=== PATIENT | female | born 1965 | race Caucasian/White ===

== ENCOUNTER 2017-04-21 14:52 | Inpatient (IN) | payer OTHER, MEDICARE ==
--- NOTE | ~2017-04-21 | DS ---
Discharge Summary [address] [place]. [address] NAME: DIANNA JACKSON : 63 STATUS : DIS Azael PAT#: [id number] AGE: 52 ADM/REG DATE : 04/21/17 MR#: [id number] REPORT SERV DATE: 04/25/17 DICTATED BY: LORA MARTINEZ DATE: 04/24/17 REPORT STATUS : Draft TRANSCRIBED BY: MABEL DATE: 04/24/17 ADMISSION DATE: 04/21/2017 DISCHARGE DATE: 04/24/2017 INVASIVE PROCEDURE: None. DISCHARGE DIAGNOSES: 1. Elevated liver enzymes. 2. Right shoulder pain. 3. Right sternocleidomastoid muscle spasm. 4. Diabetes mellitus with hyperglycemia. 5. Pseudohyponatremia secondary to hyperglycemia. 6. Systemic lupus erythematosus. 7. Fibromyalgia. 8. Chronic pain syndrome. 9. Chronic opioid use. DISCHARGE CONDITION: Stable. HISTORY OF PRESENT ILLNESS: For detailed HPI, make reference to Dr. Lora Martinez's dictation on 04/21/2017. In brief, this is a 52-year-old female with medical history of systemic lupus erythematosus, diabetes mellitus type 2, morbid obesity, hypertension, who presented to the emergency room with complaints of right shoulder pain and neck pain of a day duration. No preceding history of trauma. No fever. No chills. No associated photophobia or headaches. In the ER vital signs, blood pressure was 132/84, temperature was 37.3, pulse rate 102 beats per minute, respiratory rate 97% on room air. Physical exam was noted for limited degrees range of motion of the right shoulder joint due to pain, point tenderness along the sternocleidomastoid muscle and the deltoid muscle. LABORATORY DATA: WBC 11.0, hemoglobin 12.5, hematocrit 37.2. Chemistry serum sodium 124, potassium 4.1, chloride 94, creatinine 0.92. ALT 67, AST 47, C-reactive protein 18.9, troponin less than 0.02. An assessment of severe right shoulder pain, pseudohyponatremia secondary to hyperglycemia, diabetes mellitus and transaminitis was made in the ER, patient was admitted to the Hospitalist Service for further evaluation. HOSPITAL COURSE: 1. Right shoulder pain. The patient reported that she has extreme claustrophobia and refused to undergo an MRI. An x-ray of the shoulder was done that shows no acute fractures or dislocation. The patient was prescribed oxycodone for pain control during the course of this admission. 2. Pseudohyponatremia due to hyperglycemia. The patient was started on subcu insulin. The patient's blood sugar trended down. The patient's sodium improved to 133, and remained stable throughout the course of this admission. 3. Diabetes mellitus type 2. The patient's blood sugar was controlled with subcu insulin Discharge Summary [address] [place]. [address] NAME: DIANNA JACKSON : 63 STATUS : DIS Azael PAT#: [id number] AGE: 52 ADM/REG DATE : 04/21/17 MR#: [id number] REPORT SERV DATE: 04/25/17 DICTATED BY: LORA MARTINEZ DATE: 04/24/17 REPORT STATUS : Draft TRANSCRIBED BY: MABEL DATE: 04/24/17 throughout the course of admission. The patient was advised to continue oral hypoglycemics and follow up with primary care physician for diabetes management. 4. Elevated liver enzymes. The patient was noted to have AST of 47, ALT 218, alkaline phosphatase 217. The patient's acetaminophen level was checked, was less than 0.2. Hepatitis panel was negative. A right upper quadrant ultrasound of the liver was done that was consistent with hepatic steatosis. The patient's liver enzymes continued to trend up, peeked at 407. Gastroenterology was consulted, recommended ISAC, Alpha-1 antitrypsin, smooth muscle antibody, and ceruloplasmin level were all ordered. The patient's AST and ALT subsequently trended down to 356 and 218 respectively. Gastroenterology recommended the patient to have an outpatient followup with repeat labs within one week of discharge. The patient is also scheduled to have an EGD versus a new colonoscopy with Gastroenterology within three days of discharge. 5. Chronic opioid use. The patient reports that she has been on chronic opioids with hydrocodone prior to admission. The patient continued to report severe pain. Pain was controlled with oxycodone during the course of this admission. No acetaminophen was prescribed to this patient during this admission. The patient was discharged home to continue oxycodone and follow up at the [facility] within five days of discharge. DISCHARGE MEDICATIONS: 1. Amitriptyline 50 mg p.o. at bedtime. 2. Amlodipine/olmesartan 5/40 p.o. at bedtime. 3. Coreg 12.5 mg p.o. b.i.d. 4. Hydrochlorothiazide 25 mg p.o. daily. 5. Insulin detemir 64 units b.i.d. 6. Zyrtec 10 mg p.o. b.i.d. 7. Melatonin 3 mg p.o. daily. 8. Singulair 10 mg p.o. daily. 9. Reglan 10 mg p.o. before meals. 10.Multivitamins. 11.Omeprazole 40 mg p.o. daily. 12.Topamax 100 mg p.o. b.i.d. 13.Oxycodone 10 one p.o. q.8 hours only 18 pills prescribed. The patient to have an appointment with the Pain Clinic. The patient was counseled extensively during this admission with the possible side effects of chronic opioid use including opioid-induced constipation as well as opioid overdose which then result into . The patient adamantly demand that she would rather take pain medication than to continue to live in pain. She insisted on being prescribed some pain medication prior to see a pain clinic five days from the time of discharge. DISCHARGE ACTIVITY: As tolerated. DISCHARGE DISPOSITION: Home. DISCHARGE FOLLOWUP: Discharge Summary [address] [address] NAME: DIANNA JACKSON : 63 STATUS : DIS Azael PAT#: [id number] AGE: 52 ADM/REG DATE : 04/21/17 MR#: [id number] REPORT SERV DATE: 04/25/17 DICTATED BY: LORA MARTINEZ DATE: 04/24/17 REPORT STATUS : Draft TRANSCRIBED BY: MABEL DATE: 04/24/17 1. Follow up with Gastroenterology within one week of discharge. 2. Follow up with primary care physician within one week of discharge. 3. Follow up with Pain Clinic within one week of discharge. Greater than 30 minutes was used to prepare this patient's discharge, reconcile medication, and advised the patient on discharge plans and followup. DICTATED BY: MD DYLAN Noriega/MODL Lora Martinez MD / [id number] CC: MD Blaise Noriega D.O.
--- NOTE | ~2017-04-21 | CN ---
Consultation Report [facility] [address] [place]. [address] NAME: DIANNA JACKSON : 63 STATUS : DIS IN PAT#: [id number] AGE: 52 ADM/REG DATE : 04/21/17 MR#: [id number] REPORT SERV DATE: 04/29/17 DICTATED BY: JOSE EDUARDO WHEELER DATE: 04/26/17 REPORT STATUS : Draft TRANSCRIBED BY: MODL DATE: 04/26/17 CONSULTATION DATE OF CONSULTATION: 04/24/2017 DICTATED BY: Kita Wang, nurse practitioner dictating for Dr. Jose Eduardo Wheeler. REASON FOR CONSULTATION: Elevated liver enzymes. HISTORY OF PRESENT ILLNESS: This patient was seen in our office on 02/22/2017 for evaluation of chronic gastroparesis. She had a gastric emptying study that revealed continued delayed gastric emptying with 4-hour retention of 50%. She was continued on Reglan 10 mg twice daily. She is schedule for EGD with small-bowel biopsy and colonoscopy with biopsies next week. The patient has a history of GERD and fatty liver in the setting of obesity and diabetes mellitus. She was admitted with acute onset of right neck, shoulder, and subscapular pain that began on 04/21/2017 at 05:30 a.m. Ultrasound revealed an enlarged, fatty liver, status post GBS with dilated common bile duct of 10 mm. The patient is status post cholecystectomy 1990 that was initially laparoscopic converted to open procedure secondary to cutting of the bile duct and required repair. The patient reports she did not have any stones in her duct. She has not had a BM since admission. She denies any nausea or vomiting. She denies any abdominal pain, only right subscapular pain. PAST MEDICAL HISTORY: 1. GERD. 2. Fatty liver. 3. Gastroparesis. 4. Hypertension. 5. COPD. 6. Type 2 diabetes mellitus. 7. Fibromyalgia. 8. RA. 9. Chronic back pain. 10.DAVY for which she wears CPAP. 11.Asthma. 12.Lupus. 13.RLS. 14.Migraine headaches. 15.Palpitations. 16.Morbid obesity. PAST SURGICAL HISTORY: Umbilical hernia repair in 2009, carpal tunnel release 1999, C- section 1992 and 1996, open cholecystectomy 1990, rectal abscess in 1982 and 1990, tonsillectomy in 1964, knee surgery. Consultation Report [facility] [address] [place]. [address] NAME: DIANNA JACKSON : 63 STATUS : DIS IN PAT#: [id number] AGE: 52 ADM/REG DATE : 04/21/17 MR#: [id number] REPORT SERV DATE: 04/29/17 DICTATED BY: JOSE EDUARDO WHEELER DATE: 04/26/17 REPORT STATUS : Draft TRANSCRIBED BY: MABEL DATE: 04/26/17 ALLERGIES: NAPROXEN. HOME MEDICATIONS: Include albuterol, Elavil, Nicholas, Coreg, Artificial Tears, Zyrtec, vitamin D, Flexeril, Cymbalta, Nexium 40 mg twice daily, estradiol, Bydureon, Amaryl, hydrochlorothiazide, [place] 10/325 mg t.i.d. p.r.n., Atarax, Advil, Levemir, melatonin, metformin, metoclopramide 10 mg b.i.d. a.c., Singulair, multivitamin, Actos, progesterone, Requip, Detrol, Topamax, and calcium. SOCIAL HISTORY: The patient is and disabled. She denies any alcohol or tobacco use. FAMILY HISTORY: Mother had colon polyps. Her father had cirrhosis and liver cancer with metastasis to the lung. Her son has undiagnosed GI problems with abdominal pain and irregular bowel function. He was told he had precancerous cells in the colon. Maternal grandmother ovarian cancer and maternal aunt breast cancer and colon polyps. REVIEW OF SYSTEMS: Otherwise unremarkable for constitutional, endocrine, neurologic, psychiatric, ocular, ENT, pulmonary, cardiovascular, GI, , or rheumatologic symptoms except for as noted above. PHYSICAL EXAMINATION: VITAL SIGNS: Temperature max 100.1. Temperature now 98.5, pulse 89, respirations 22, BP 131/69. GENERAL: The patient is morbidly obese. No acute distress. Complains of pain in the right shoulder and subscapular region with ice to the area and unable to lay on her right shoulder. HEENT: Grossly within normal limits. CHEST: Clear to auscultation bilaterally. CARDIOVASCULAR: Regular rate and rhythm. ABDOMEN: Obese, soft, nontender, no palpable mass. EXTREMITIES: Without edema. LABORATORY DATA: WBC 8.7, hemoglobin mildly low at 11.6, INR 1.1, platelets 244. Sodium 134, potassium 3.8, glucose high at 258, albumin low at 3.3, total bilirubin 1.0, alkaline phosphatase high at 217, ALT high at 356, AST high at 218. There is no prior elevation of alkaline phosphatase prior to this admission per [facility]. There is, however, mild intermittent transaminase elevation since 2009. Hepatitis profile nonreactive. IMPRESSION: 1. Right shoulder/neck and subscapular pain, definitely musculoskeletal as she cannot lay on her shoulder or neck. 2. Fatty liver with chronically elevated liver transaminases. However, liver enzymes are elevated more than baseline. Total bilirubin is normal. 3. Gastroesophageal reflux disease. 4. Diabetic gastroparesis. 5. Type 2 diabetes mellitus. Consultation Report [address] [address] NAME: DIANNA JACKSON : 63 STATUS : DIS IN PAT#: [id number] AGE: 52 ADM/REG DATE : 04/21/17 MR#: [id number] REPORT SERV DATE: 04/29/17 DICTATED BY: JOSE EDUARDO WHEELER DATE: 04/26/17 REPORT STATUS : Draft TRANSCRIBED BY: MABEL DATE: 04/26/17 6. Morbid obesity. PLAN: The patient does have a family history of alcoholic cirrhosis and liver cancer. We will check ISAC, SMA, AMA, alpha 1 antitrypsin, and ceruloplasmin as well as iron studies. The patient was started on hormone replacement therapy about 5 months ago, and this could be a cause for elevation in her liver enzymes. She will keep appointment next week for EGD and colonoscopy. We will give milk of magnesia for opioid induced constipation. Okay for discharge home from a GI standpoint, and we will be available as needed. /MODL Jose Eduardo Wheeler M.D. / [id number] CC: MD Blaise Noriega D.O. Nathan B. Wyatt, MD Russell Walker, M.D. Marina Grigorian, M.D. DENNIS FORD, MD
--- NOTE | ~2017-04-21 | HP ---
History And Physical [address] [place]. [address] NAME: DIANNA JACKSON : 63 STATUS : ADM Azael PAT#: [id number] AGE: 51 ADM/REG DATE : 04/21/17 MR#: [id number] REPORT SERV DATE: 04/21/17 DICTATED BY: LORA MARTINEZ DATE: 04/21/17 REPORT STATUS : Draft TRANSCRIBED BY: MABEL DATE: 04/21/17 DATE OF ADMISSION: 04/21/2017 CHIEF COMPLAINT: Right shoulder pain and neck pain. HISTORY OF PRESENT ILLNESS: This is a 51-year-old female with medical history of systemic lupus erythematosus, diabetes mellitus type 2, morbid obesity, hypertension who presented to the emergency room with complaints of right shoulder pain and neck pain of a day duration. The patient reports that she was in her usual state of health until about 7 hours prior to presentation when she woke up from sleep and noticed severe right shoulder pain and neck pain. She reports that the pain was 10/10 in severity, aching in nature. No known precipitating factor. She reports that the pain radiated through the right side of her neck to her right shoulder and all the way into forearms. She denies any associated numbness or tingling or weakness of the right upper extremity. She denies any preceding trauma or fall. No known relieving factor. She reports that the pain is exacerbated by rotation or movement of her neck to the right side. She denies any associated headache, fever, chills, nasal congestion, or sore throat. She denies any history of recent travel. No associated chest pain, shortness of breath, palpitation, presyncope, or syncopal episode. The patient reported that due to worsening of the pain she decided to come to the emergency room for further evaluation. In the emergency room, the patient was given IV morphine. The patient reported that this improved the pain from 10/10 to about 8/10. She was also noted to have blood glucose of 375 and serum sodium of 127. Hence, the hospitalist team was consulted to admit the patient for further evaluation. PAST MEDICAL HISTORY: 1. Systemic lupus erythematosus, presently not, on Plaquenil. The patient reports that she had Plaquenil retinal toxicity. 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 She denies any recent history of systemic lupus erythematosus acute flare. Her typical flare is usually associated with diffuse joint pain. She endorses that this current presentation is not similar to known lupus flares. 2. Diabetes mellitus type 2. 3. Morbid obesity. 4. Hypertension. 5. Dyslipidemia. 6. Fibromyalgia. 7. COPD/asthma. SURGERY HISTORY: 1. . 2. Laser for feet warts x3 1990. 3. Gallbladder surgery in 1990. 4. Rectal abscess drainage in 1990. 5. Umbilical hernia repair in 1999. History And Physical [address] [place]. [address] NAME: DIANNA JACKSON : 63 STATUS : ADM Azael PAT#: [id number] AGE: 51 ADM/REG DATE : 04/21/17 MR#: [id number] REPORT SERV DATE: 04/21/17 DICTATED BY: LORA MARTINEZ DATE: 04/21/17 REPORT STATUS : Draft TRANSCRIBED BY: MABEL DATE: 04/21/17 SOCIAL HISTORY: She denies drinking alcohol, smoking cigarettes, or illicit drug use. She is currently , lives with her , and currently unemployed. ALLERGIC HISTORY: She is allergic to naproxen. HOME MEDICATIONS: 1. Ibuprofen 800 mg q.6 hours p.r.n. 2. Artificial Tears 1 drop 4 times a day. 3. Estradiol 0.1 mg patch, Sundays and Wednesdays. 4. Levemir 64 units b.i.d. 5. Bydureon 2 mg subcu q.7 on Fridays. 6. Metoclopramide 30 mg p.o. before each meals. 7. Hydrocodone 10/325, one tab p.o. three times a day. 8. Flexeril 10 mg one p.o. t.i.d. 9. Proventil HFA 2 puffs q.4 hours. 10.Hydroxyzine 50 mg t.i.d. 11.Nexium 40 mg b.i.d. 12.Singulair 10 mg p.o. daily. 13.Metformin extended release 1000 mg p.o. b.i.d. 14.Progesterone 100 mg p.o. at bedtime. 15.Amitriptyline 50 mg p.o. at bedtime. 16.Actos 50 mg p.o. daily. 17.Glimepiride 2 mg p.o. b.i.d. 18.Topiramate 100 mg p.o. b.i.d. 19.Multivitamin one tab daily. 20.Vitamin D3 supplement 5000 units 1 p.o. daily. 21.Amlodipine-olmesartan 5/40 one tablet p.o. at bedtime. 22.Ropinirole 1 mg p.o. at bedtime. 23.Melatonin 3 mg p.o. at bedtime. 24.Zyrtec 10 mg p.o. at bedtime. FAMILY HISTORY: Significant for diabetes mellitus in both parents. Father is currently diseased, of old age complications. PHYSICAL EXAMINATION: VITAL SIGNS: Blood pressure 132/84 mmHg, temperature 37.3, pulse 104 beats per minute, respiratory rate 97 on room air. GENERAL: In acute distress due to pain. HEENT: Pupils equal, round, and reactive. Extraocular muscles intact. No pallor. No jaundice. No cyanosis. Oral mucosa moist. NECK: Point tenderness along the right sternocleidomastoid muscle. No JVD. No palpably enlarged thyromegaly. No cervical lymphadenopathy. CHEST: Equal expansion, nontender. LUNGS: Clear to auscultation bilaterally. No crackles. No wheezes. No rhonchi. CARDIOVASCULAR: Regular rate and rhythm. S1, S2. No rubs. No gallops. No murmurs. ABDOMEN: Obese, bowel sounds normoactive. Nontender. No palpably enlarged organomegaly. EXTREMITIES: Lower extremities, no pedal edema. History And Physical [address] [address] NAME: DIANNA JACKSON : 63 STATUS : ADM Azael PAT#: [id number] AGE: 51 ADM/REG DATE : 04/21/17 MR#: [id number] REPORT SERV DATE: 04/21/17 DICTATED BY: LORA MARTINEZ DATE: 04/21/17 REPORT STATUS : Draft TRANSCRIBED BY: MABEL DATE: 04/21/17 NEUROLOGY: Cranial nerve 2 through 12 intact. Strength in lower extremities 5/5. Upper extremities strength examination limited due to shoulder pains. MUSCULOSKELETAL: Point tenderness along the right deltoid muscle. Decreased range of motion to abduction, adduction, extension and flexion due to pain. No joint deformity. No skin rash. No erythema. Limited range of motion due to pain. Left shoulder intact. LABORATORY DATA: WBC 11.0, hemoglobin 12.5, hematocrit 37.2, platelets 258. Chemistry: Serum sodium 127, potassium 4.1, chloride 97, bicarb 27, BUN 13, creatinine 0.92, GFR 72. Glucose 358, calcium 9.2, total protein 7.4, albumin 3.3, globulin 4.1, ALT 67, AST 47, C- reactive protein 18.9, troponin less than 0.02. Urinalysis is normal. ASSESSMENT AND PLAN: 1. Right shoulder pain and neck pain, likely due to severe right sternocleidomastoid muscle spasm. 2. Diabetes mellitus type 2 with hyperglycemia. 3. Pseudohyponatremia secondary to hyperglycemia. 4. Transaminase. 5. Leukocytosis. PLAN: 1. I will order a cervical spine x-ray and right shoulder x-ray to rule out any acute fractures or dislocation. Pain control will be achieved with hydrocodone and IV Dilaudid for breakthrough. 2. Pseudohyponatremia due to hyperglycemia, corrected. Sodium for glucose is 133. We will treat the patient hyperglycemia, give IV fluid resuscitation. We will treat the patient hyperglycemia with insulin subcutaneously and IV fluid resuscitation. We will recheck the patient's serum sodium after IV fluid and glucose treatment. 3. Transaminases. Definitive etiology unclear, may relate to hepatic steatosis. I will obtain hepatitis panel to rule out a viral etiology. I will also check serum acetaminophen level. 4. Leukocytosis, likely reactive leukocytosis due to severe pain. I will repeat the patient's WBC monitor closely. 5. Systemic lupus erythematosus, currently off Plaquenil, due to history of Plaquenil toxicity. No evidence of acute lupus flare at this time. ESR is essentially within range for patient's age as well as CRP. We will continue to monitor. 6. Fibromyalgia. We will recommence patient's Cymbalta. ADMISSION DISPOSITION: 1. CDU. 2. Admission status observation. 3. DVT prophylaxis. 4. Heparin subcu. CODE STATUS: Full code. This patient will be admitted under the Hospitalist Service. We will continue to monitor. History And Physical [address] [place]. [address] NAME: DIANNA JACKSON : 63 STATUS : ADM Azael PAT#: [id number] AGE: 51 ADM/REG DATE : 04/21/17 MR#: [id number] REPORT SERV DATE: 04/21/17 DICTATED BY: LORA MARTINEZ DATE: 04/21/17 REPORT STATUS : Draft TRANSCRIBED BY: MODL DATE: 04/21/17 DYLAN/MABEL Lora Martinez MD / [id number] CC: Essie Rubalcava M.D.
[2017-04-21 11:58] LABS: BASOPHILS 0.1 %; BASOPHILS ABSOLUTE 0.01 10/3/uL (0.0-0.16); EOSINOPHILS 2.5 %; EOSINOPHILS ABSOLUTE 0.28 10/3/uL (0.0-0.53); ER CBC TAT 0 Hrs 12 Mins; HEMATOCRIT 37.2 % (36.0-48.0); HEMOGLOBIN 12.5 g/dL (12.0-16.0); IMMATURE GRANULOCYTES 0.2 %; IMMATURE GRANULOCYTES ABSOLUTE 0.02 10/3/uL (0.0-0.11); LYMPHOCYTES 24.5 %; LYMPHOCYTES ABSOLUTE 2.69 10/3/uL (0.67-4.30); MEAN CORPUS HGB CONC 33.6 g/dL (32.0-36.0); MEAN CORPUSCULAR VOLUME 86.3 fL (80-100); MEAN PLATELET VOLUME 10.1 fL (9.2-13.0); MONOCYTES 4.8 %; MONOCYTES ABSOLUTE 0.53 10/3/uL (0.21-1.20); NEUTROPHILS 67.9 %; NEUTROPHILS ABSOLUTE 7.47 10/3/uL (2.02-8.40); PLATELET COUNT 258 10/3/uL (150-400); RBC DISTRIBUTION WIDTH 13.6 % (12.0-16.0); RED CELL COUNT 4.31 10/6/uL (4.0-5.6)
[2017-04-21 11:59] LABS: MANUAL DIFF NO %
[2017-04-21 12:13] LABS: ASCORBIC ACID (UR NOT ORDER) NEG (NEG); BILIRUBIN, URINE NEGATIVE (NEG); ER URINALYSIS TAT 0 Hrs 14 Mins; KETONE, URINE NEGATIVE (NEG); LEUKOCYTE ESTERASE(NOT OR NEG (NEG); NITRITE (URINE) NEG (NEG); WBC (NOT ORDERED) (RFLEX) 1 (0-5)
[2017-04-21 12:14] LABS: A/G RATIO 0.8 (0.7-1.9); ALBUMIN 3.3 G/DL (3.5-5.0); ALKALINE PHOSPHATASE 99 U/L (45-117); BUN (BLOOD UREA NITROGEN) 13 MG/DL (6-23); C-REACTIVE PROTEIN 18.9 MG/L (<8.0); CALCIUM, SERUM 9.2 MG/DL (8.5-10.4); CHLORIDE, SERUM 97 MMOL/L (96-112); CO2 (CARBON DIOXIDE) 27 MMOL/L (24-34); CREATININE 0.92 MG/DL (0.55-1.02); GFR AFRICAN AMERICAN 83 ML/MIN (>=60); GFR NON AFRICAN AMERICAN 72 ML/MIN (>=60); GLOBULIN 4.1 G/DL (2.5-4.1); GLUCOSE, SERUM 358 MG/DL (60-99); POTASSIUM, SERUM 4.1 MMOL/L (3.5-5.3); SGPT(ALT) 67 U/L (5-65); SODIUM, SERUM 127 MMOL/L (135-148); TOTAL BILIRUBIN 0.3 MG/DL (0-1.2); TOTAL PROTEIN 7.4 G/DL (6.0-8.5); TROPONIN I <0.02 NG/ML (<0.05)
[2017-04-21 12:15] LABS: SGOT(AST) 47 U/L (5-40)
[2017-04-21 12:39] LABS: SED RATE 28 MM/HR (0-20)
[~2017-04-21 14:52] MED LIST: ACTOS15 PO; ADVIL PO; AMARYL2 PO; AMIT100 PO; AMIT50 PO; AT25 PO; ATARAX50B PO; AZOR1 TA1 PO; BIRTH CONTROL PO; BYDUREON2 MG SQ; CALCIUM OTC PO; COREG12 PO; COREG6 PO; CYMBALTA60 PO; D 5000 PO; DETROLLA4 PO; FLEX PO; FORTAMET1000 MG PO; GLUCPH PO; HCTZ25B PO; HYDROCHLOROT25 MG PO; LEVEMFLXPN SC; LEVEMIR SC; MELA3 PO; MINIVELLE1 EAC1 TOP; MULTIPLE VIT PO; MULTIVIT/MIN PO; MYRBETRIQ25 MG PO; NEXIUM40 PO; NORCO1 TAB PO; PR25 PO; PROMETRIUM PO; PROTONIX PO; PROVHFA INH; REG PO; REQUIP1 PO; REST15 PO; SINGULAIR1 PO; TEARS PURE OPH; TOPAMAX100 PO; TOPAMAX25 PO; VITAMIN D31000 UNIT PO; VIVELLE SY0.025 MG/2 TOP; ZYRTEC ALLGY10 MG PO
[2017-04-21 22:58] LABS: BASOPHILS 0.1 %; BASOPHILS ABSOLUTE 0.01 10/3/uL (0.0-0.16); EOSINOPHILS 3.1 %; EOSINOPHILS ABSOLUTE 0.27 10/3/uL (0.0-0.53); HEMATOCRIT 35.1 % (36.0-48.0); HEMOGLOBIN 11.7 g/dL (12.0-16.0); IMMATURE GRANULOCYTES 0.2 %; IMMATURE GRANULOCYTES ABSOLUTE 0.02 10/3/uL (0.0-0.11); LYMPHOCYTES 30.7 %; LYMPHOCYTES ABSOLUTE 2.64 10/3/uL (0.67-4.30); MANUAL DIFF NO %; MEAN CORPUS HGB CONC 33.3 g/dL (32.0-36.0); MEAN CORPUSCULAR VOLUME 86.9 fL (80-100); MEAN PLATELET VOLUME 9.8 fL (9.2-13.0); MONOCYTES 6.4 %; MONOCYTES ABSOLUTE 0.55 10/3/uL (0.21-1.20); NEUTROPHILS 59.5 %; NEUTROPHILS ABSOLUTE 5.11 10/3/uL (2.02-8.40); PLATELET COUNT 239 10/3/uL (150-400); RBC DISTRIBUTION WIDTH 13.7 % (12.0-16.0); RED CELL COUNT 4.04 10/6/uL (4.0-5.6); WHITE BLOOD CELLS 8.6 10/3/uL (4.5-10.5)
[2017-04-21 23:32] LABS: BUN (BLOOD UREA NITROGEN) 12 MG/DL (6-23); CALCIUM, SERUM 8.4 MG/DL (8.5-10.4); CHLORIDE, SERUM 100 MMOL/L (96-112); CO2 (CARBON DIOXIDE) 30 MMOL/L (24-34); CREATININE 0.97 MG/DL (0.55-1.02); GFR AFRICAN AMERICAN 78 ML/MIN (>=60); GFR NON AFRICAN AMERICAN 67 ML/MIN (>=60); GLUCOSE, SERUM 241 MG/DL (60-99); PHOSPHORUS, SERUM 2.6 MG/DL (2.5-4.5); POTASSIUM, SERUM 3.4 MMOL/L (3.5-5.3); SODIUM, SERUM 134 MMOL/L (135-148)
[2017-04-22 05:26] LABS: A/G RATIO 0.9 (0.7-1.9); ALBUMIN 3.1 G/DL (3.5-5.0); ALKALINE PHOSPHATASE 99 U/L (45-117); BUN (BLOOD UREA NITROGEN) 11 MG/DL (6-23); CALCIUM, SERUM 8.3 MG/DL (8.5-10.4); CHLORIDE, SERUM 100 MMOL/L (96-112); CO2 (CARBON DIOXIDE) 31 MMOL/L (24-34); CREATININE 0.84 MG/DL (0.55-1.02); FREE T4 1.36 NG/DL (0.76-1.46); GFR AFRICAN AMERICAN 92 ML/MIN (>=60); GFR NON AFRICAN AMERICAN 79 ML/MIN (>=60); GLOBULIN 3.6 G/DL (2.5-4.1); GLUCOSE, SERUM 208 MG/DL (60-99); POTASSIUM, SERUM 3.4 MMOL/L (3.5-5.3); SGOT(AST) 90 U/L (5-40); SGPT(ALT) 86 U/L (5-65); SODIUM, SERUM 134 MMOL/L (135-148); TOTAL BILIRUBIN 0.5 MG/DL (0-1.2); TOTAL PROTEIN 6.7 G/DL (6.0-8.5)
[2017-04-22 05:27] LABS: PHOSPHORUS, SERUM 3.4 MG/DL (2.5-4.5)
[2017-04-22 06:07] LABS: PROCALCITONIN 0.17 ng/mL (<0.5)
[2017-04-22 10:50] LABS: ALBUMIN 2.9 G/DL (3.5-5.0); SGPT(ALT) 128 U/L (5-65); TOTAL BILIRUBIN 0.5 MG/DL (0-1.2); TOTAL PROTEIN 6.6 G/DL (6.0-8.5)
[2017-04-22 10:51] LABS: ALKALINE PHOSPHATASE 117 U/L (45-117); DIRECT BILIRUBIN < 0.1 MG/DL (0.0-0.4); INDIRECT BILIRUBIN(NOT ORDER) 0.4 MG/DL (0.1-0.9); SALICYLATE < 1.7 MG/DL (-); SGOT(AST) 183 U/L (5-40)
[2017-04-23 04:51] LABS: BASOPHILS 0.1 %; BASOPHILS ABSOLUTE 0.01 10/3/uL (0.0-0.16); EOSINOPHILS 2.5 %; HEMATOCRIT 36.3 % (36.0-48.0); HEMOGLOBIN 12.2 g/dL (12.0-16.0); IMMATURE GRANULOCYTES 0.3 %; IMMATURE GRANULOCYTES ABSOLUTE 0.02 10/3/uL (0.0-0.11); LYMPHOCYTES 32.1 %; LYMPHOCYTES ABSOLUTE 2.54 10/3/uL (0.67-4.30); MANUAL DIFF NO %; MEAN CORPUS HGB CONC 33.6 g/dL (32.0-36.0); MEAN CORPUSCULAR HEMOGLOB 29.3 pg (26.0-34.0); MEAN CORPUSCULAR VOLUME 87.3 fL (80-100); MEAN PLATELET VOLUME 9.8 fL (9.2-13.0); MONOCYTES 5.9 %; MONOCYTES ABSOLUTE 0.47 10/3/uL (0.21-1.20); NEUTROPHILS 59.1 %; NEUTROPHILS ABSOLUTE 4.68 10/3/uL (2.02-8.40); PLATELET COUNT 255 10/3/uL (150-400); RBC DISTRIBUTION WIDTH 13.7 % (12.0-16.0); RED CELL COUNT 4.16 10/6/uL (4.0-5.6); WHITE BLOOD CELLS 7.9 10/3/uL (4.5-10.5)
[2017-04-23 05:05] LABS: A/G RATIO 0.8 (0.7-1.9); ALBUMIN 3.2 G/DL (3.5-5.0); BUN (BLOOD UREA NITROGEN) 10 MG/DL (6-23); CHLORIDE, SERUM 97 MMOL/L (96-112); CO2 (CARBON DIOXIDE) 30 MMOL/L (24-34); CREATININE 0.95 MG/DL (0.55-1.02); GFR AFRICAN AMERICAN 79 ML/MIN (>=60); GFR NON AFRICAN AMERICAN 68 ML/MIN (>=60); GLOBULIN 3.9 G/DL (2.5-4.1); GLUCOSE, SERUM 242 MG/DL (60-99); SGOT(AST) 462 U/L (5-40); SGPT(ALT) 407 U/L (5-65); SODIUM, SERUM 130 MMOL/L (135-148); TOTAL PROTEIN 7.1 G/DL (6.0-8.5)
[2017-04-23 05:06] LABS: ALKALINE PHOSPHATASE 191 U/L (45-117); CALCIUM, SERUM 9.4 MG/DL (8.5-10.4); TOTAL BILIRUBIN 1.2 MG/DL (0-1.2)
[2017-04-23 18:12] LABS: ACETAMINOPHEN LEVEL (TYLENOL) < 2.0 MCG/ML (10.0-20.0)
[2017-04-24 06:11] LABS: INTERNATIONAL NORMAL RATI 1.1 UNITS (-); PROTIME (NOT ORD) 14.1 SEC (12.0-14.5)
[2017-04-24 06:18] LABS: BASOPHILS 0.1 %; BASOPHILS ABSOLUTE 0.01 10/3/uL (0.0-0.16); EOSINOPHILS 3.3 %; EOSINOPHILS ABSOLUTE 0.29 10/3/uL (0.0-0.53); HEMATOCRIT 34.5 % (36.0-48.0); HEMOGLOBIN 11.6 g/dL (12.0-16.0); IMMATURE GRANULOCYTES 0.3 %; IMMATURE GRANULOCYTES ABSOLUTE 0.03 10/3/uL (0.0-0.11); LYMPHOCYTES 29.9 %; MANUAL DIFF NO %; MEAN CORPUS HGB CONC 33.6 g/dL (32.0-36.0); MEAN CORPUSCULAR HEMOGLOB 29.2 pg (26.0-34.0); MEAN CORPUSCULAR VOLUME 86.9 fL (80-100); MEAN PLATELET VOLUME 10.2 fL (9.2-13.0); MONOCYTES ABSOLUTE 0.52 10/3/uL (0.21-1.20); NEUTROPHILS 60.4 %; NEUTROPHILS ABSOLUTE 5.25 10/3/uL (2.02-8.40); PLATELET COUNT 244 10/3/uL (150-400); RBC DISTRIBUTION WIDTH 13.7 % (12.0-16.0); RED CELL COUNT 3.97 10/6/uL (4.0-5.6); WHITE BLOOD CELLS 8.7 10/3/uL (4.5-10.5)
[2017-04-24 06:20] LABS: A/G RATIO 0.8 (0.7-1.9); ALBUMIN 3.3 G/DL (3.5-5.0); BUN (BLOOD UREA NITROGEN) 11 MG/DL (6-23); CHLORIDE, SERUM 99 MMOL/L (96-112); CREATININE 0.86 MG/DL (0.55-1.02); GFR AFRICAN AMERICAN 89 ML/MIN (>=60); GFR NON AFRICAN AMERICAN 77 ML/MIN (>=60); GLUCOSE, SERUM 258 MG/DL (60-99); POTASSIUM, SERUM 3.8 MMOL/L (3.5-5.3); SGPT(ALT) 356 U/L (5-65); SODIUM, SERUM 134 MMOL/L (135-148); TOTAL PROTEIN 7.3 G/DL (6.0-8.5)
[2017-04-24 06:21] LABS: ALKALINE PHOSPHATASE 217 U/L (45-117); CO2 (CARBON DIOXIDE) 25 MMOL/L (24-34); SGOT(AST) 218 U/L (5-40)
[2017-04-24 09:12] LABS: HEPATITIS B SURFACE ANTIGEN NON-REACTIVE (NON-REACT)
[2017-04-24 09:18] LABS: HEPATITIS C ANTIBODY NON-REACTIVE (NON-REACT)
[2017-04-24 09:19] LABS: HEPATITIS B CORE AB IGM NON-REACTIVE (NON-REAC)
[2017-04-24 09:21] LABS: HEP A ANTIBODY IGM NON-REACTIVE (NON-REACT)
[2017-04-24 17:58] LABS: FERRITIN 117 NG/ML (8-252); IRON BINDING CAPACITY 235 MCG/DL (225-410); IRON, SERUM 41 MCG/DL (35-150)
[2017-04-24] MEDS ORDERED: OXYCODONE HCL PO (19:32)
[2017-04-26 12:27] LABS: ANA PATTERN SPECKLED; ANA TITER 1:40 TITER
[2017-04-26 15:50] LABS: CERULOPLASMIN 34 mg/dL (7-220)
[2017-04-27 16:07] LABS: MITOCHONDRIAL ANTIBODY Negative (NEG); SMOOTH MUSCLE ANTIBODIES Negative (NEG)
[2017-04-28 21:16] LABS: ALPHA-1-ANTITRYPSIN 135 mg/dL (90-200)
[2017-05-31] MEDS ORDERED: METHOC750B PO (14:45)
[2017-05-31] MEDS ORDERED: MSCONT15 PO (14:45)
== END 2017-04-24 20:05 | disposition home or self-care (01) | DRG 556 ==
LOC: ER 14:52 → CDU1 14:58 → CDU2 15:09
PROVIDERS: Hospitalist; Internal Medicine Gastroenterology; Physician Assistant
DX: M62.838 Other muscle spasm (principal); E11.43 Type 2 diabetes mellitus with diabetic autonomic (poly)neuropathy; M32.9 Systemic lupus erythematosus, unspecified; K31.84 Gastroparesis; E11.65 Type 2 diabetes mellitus with hyperglycemia; K76.0 Fatty (change of) liver, not elsewhere classified; E87.1 Hypo-osmolality and hyponatremia; Z68.42 Body mass index [BMI] 45.0-49.9, adult; M79.7 Fibromyalgia; G89.4 Chronic pain syndrome; M06.9 Rheumatoid arthritis, unspecified; G47.33 Obstructive sleep apnea (adult) (pediatric); E66.01 Morbid (severe) obesity due to excess calories; Z79.891 Long term (current) use of opiate analgesic; Z79.84 Long term (current) use of oral hypoglycemic drugs
CPT/HCPCS: 71020; 72040; 73030-RT; 76705; 80048; 80053; 80074; 80076; 81001; 82103; 82104; 82390; 82728; 82962; 83036; 83540; 83550; 83735; 84100; 84145; 84439; 84443; 84484; 85025; 85610; 85652; 86039; 86140; 86255; 87040; 93005; 96374; 99285; A9270-GY; G0480; J1170

== ENCOUNTER 2017-04-25 19:53 | Emergency (ER) | payer OTHER ==
[~2017-04-25 19:53] MED LIST changes: +OXYCODONE HCL PO
[2017-05-31] MEDS ORDERED: MSCONT15 PO (14:45)
[2017-05-31] MEDS ORDERED: METHOC750B PO (14:45)
== END 2017-04-25 20:49 | disposition home or self-care (01) ==
LOC: ER 19:53
DX: M25.511 Pain in right shoulder (principal); M62.838 Other muscle spasm; G89.4 Chronic pain syndrome; F11.90 Opioid use, unspecified, uncomplicated; M79.7 Fibromyalgia; J45.909 Unspecified asthma, uncomplicated; J44.9 Chronic obstructive pulmonary disease, unspecified; I10 Essential (primary) hypertension; G47.30 Sleep apnea, unspecified; E78.5 Hyperlipidemia, unspecified; E11.9 Type 2 diabetes mellitus without complications; E66.01 Morbid (severe) obesity due to excess calories; Z90.49 Acquired absence of other specified parts of digestive tract; Z88.8 Allergy status to other drugs, medicaments and biological substances; Z79.4 Long term (current) use of insulin; Z79.899 Other long term (current) drug therapy
CPT/HCPCS: 96372; 99283; J1170; J2360; J2550